=== PATIENT | male | born 1960 | race African-American/Black ===

== ENCOUNTER → 2016-12-04 | Outpatient (CLI) | payer MEDICARE, MEDICAID ==
[~2016-12-04] MED LIST: BISA-81 PO; COZAAR PO; DIPH25CA83 IVP; FOLI1CAP6 PO; HYDRALAZINE PO; LASIX PO; NORVASC PO; OMEP20CA10 PO; SEVE800T8 PO; VERAPAMIL PO
== END | disposition home or self-care (01) ==
LOC: NM 08:33
PROVIDERS: ATTEND Internal Medicine
DX: N25.81 Secondary hyperparathyroidism of renal origin (principal); N18.6 End stage renal disease; E04.2 Nontoxic multinodular goiter
CPT/HCPCS: 76536; 78070; A9500

== ENCOUNTER → 2017-01-08 | Outpatient (CLI) | payer MEDICARE, MEDICAID | END | disposition home or self-care (01) | LOC: NM 07:38 | PROVIDERS: ATTEND Internal Medicine Nephrology | DX: E04.1 Nontoxic single thyroid nodule (principal) | CPT/HCPCS: 78014; A9516 ==

== ENCOUNTER → 2017-01-31 | Outpatient (CLI) | payer MEDICARE, MEDICAID | END | disposition home or self-care (01) | LOC: US 07:35 | PROVIDERS: ATTEND Internal Medicine Nephrology | DX: D18.03 Hemangioma of intra-abdominal structures (principal); Q61.2 Polycystic kidney, adult type; R16.1 Splenomegaly, not elsewhere classified | CPT/HCPCS: 76700 ==

== ENCOUNTER 2017-04-24 07:28 | Emergency (ER) | payer MEDICARE, MEDICAID ==
[~2017-04-24] VITALS: Ht 172.7 cm; Wt 70.0 kg
[2017-04-24 07:31] VITALS: BP 120/73
== END 2017-04-24 13:08 | disposition left against medical advice (07) ==
LOC: ER 07:40
DX: R07.9 Chest pain, unspecified (principal); Z53.21 Procedure and treatment not carried out due to patient leaving prior to being seen by health care provider
CPT/HCPCS: 93005; J7030

== ENCOUNTER 2025-03-22 20:27 | Inpatient (IN) | payer MEDICARE, MEDICAID ==
[~2025-03-22] VITALS: Ht 170.2 cm; Wt 61.7 kg
[~2025-03-22 20:27] MED LIST changes: -OMEP20CA10 PO; +OMEP20CA14 PO
[2025-03-22 21:16] LABS: BASOPHILS % 0.7 % (0.0-2.0); EOSINOPHILS % 4.0 % (0.0-5.0); HEMATOCRIT. 33.5 % (42.0-52.0); HEMOGLOBIN. 10.2 g/dL (14.0-18.0); LYMPHOCYTES % 14.5 % (20.0-50.0); MEAN PLATELET VOLUME 7.7 fl (7.4-10.4); MONOCYTES % 8.6 % (2.0-8.0); NEUTROPHILS % 72.2 % (40.0-76.0); PLATELET 137 x1000/uL (130-400); RED BLOOD CELL COUNT 3.80 mill/uL (4.7-6.1); RED CELL DISTRIBUTION WIDTH 21.5 % (11.6-14.6)
[2025-03-22 21:34] LABS: CREATININE 3.5 mg/dL (0.6-1.3); UREA NITROGEN BLOOD 18 mg/dL (9-23)
[2025-03-22 21:35] LABS: PROTEIN TOTAL 7.2 g/dL (6.0-8.3); TROPONIN I HIGH SENSITIVITY 16 ng/L (3.0-53)
[2025-03-22 21:36] LABS: ASPARTATE AMINOTRANSFERASE 12 IU/L (<34); BILIRUBIN DIRECT 0.1 mg/dL (<=3.0); BILIRUBIN TOTAL 0.3 mg/dL (0.1-1.0)
[2025-03-22 21:39] LABS: INR 1.2
[2025-03-22] MEDS: MORPHINE SULFATE 4 MG/ML INJ (FOR IV/IM USE) IV ONE (22:09)
[2025-03-22] MEDS ORDERED: AZITHROMYCIN 500MG/250ML 250 ML IV ONE (22:45)
[2025-03-22] MEDS: CEFTRIAXONE 2GM/50ML 50 ML IV ONE (22:58)
[2025-03-23] VITALS (7 sets, daily range): BP systolic 106–140; BP diastolic 60–102; PULSE 60–78; RESP 16–20; TEMP 36.4–37.2; O2SAT 97–100
[2025-03-23] MEDS ORDERED: ACETAMINOPHEN 325MG TABLET PO PRN
[2025-03-23] MEDS ORDERED: ONDANSETRON HCL 4MG/2ML INJ IV PRN
[2025-03-23] MEDS ORDERED: NALOXONE HCL 0.4MG/ML VIAL IV PRN (00:45)
[2025-03-23] MEDS: LORAZEPAM 2MG/ML UD SYRINGE IV NR (01:08)
[2025-03-23] MEDS: DOXYCYCLINE 100MG/100ML 100 ML IV SCH ×2 (02:14→21:55)
[2025-03-23] MEDS: BLOOD SUGAR DIAGNOSTIC STRIP TEST SCH (06:23)
[2025-03-23] MEDS: INSULIN LISPRO 100 UNITS/ML SUBCUT SCH (06:23)
[2025-03-23 06:34] LABS: BASOPHILS % 0.4 % (0.0-2.0); EOSINOPHILS % 3.3 % (0.0-5.0); HEMATOCRIT. 33.9 % (42.0-52.0); HEMOGLOBIN. 10.3 g/dL (14.0-18.0); LYMPHOCYTES % 23.6 % (20.0-50.0); MEAN PLATELET VOLUME 7.9 fl (7.4-10.4); MONOCYTES % 11.3 % (2.0-8.0); NEUTROPHILS % 61.4 % (40.0-76.0); PLATELET 118 x1000/uL (130-400); RED BLOOD CELL COUNT 3.89 mill/uL (4.7-6.1); RED CELL DISTRIBUTION WIDTH 21.3 % (11.6-14.6)
[2025-03-23 06:47] LABS: CREATININE 4.0 mg/dL (0.6-1.3); TRIGLYCERIDE 41.0 mg/dL (0-150); UREA NITROGEN BLOOD 23.0 mg/dL (9-23)
[2025-03-23 06:48] LABS: LDL CHOLESTEROL 24.0 mg/dL (5-100)
[2025-03-23 06:49] LABS: TROPONIN I HIGH SENSITIVITY 18 ng/L (3.0-53)
[2025-03-23 06:51] LABS: T4 FREE 1.15 ng/dL (0.89-1.76)
[2025-03-23 07:33] LABS: HEPATITIS C AB NON REACTIVE (Neg) (Negative)
[2025-03-23] MEDS: ASPIRIN 81MG EC TABLET PO SCH (09:10)
[2025-03-23] MEDS: PANTOPRAZOLE SODIUM 40 MG/VIAL IV SCH (09:10)
[2025-03-23] MEDS: APIXABAN 5 MG TABLET PO SCH (09:11)
[2025-03-23] MEDS: CALCITRIOL 0.25MCG CAPSULE PO SCH (09:11)
[2025-03-23] MEDS: TAMSULOSIN HCL 0.4MG SR CAPSULE PO SCH (09:11)
[2025-03-23] MEDS: AMLODIPINE 5MG TABLET PO SCH (09:11)
[2025-03-23] MEDS ORDERED: CEFEPIME 1GM/50ML 50 ML IV SCH (11:00)
[2025-03-23 11:32] LABS: CREATININE 4.3 mg/dL (0.6-1.3); UREA NITROGEN BLOOD 22.0 mg/dL (9-23)
[2025-03-23] MEDS: CEFEPIME 1GM/50ML 50 ML IV SCH (12:15)
[2025-03-23] MEDS: AMIODARONE 200MG TABLET PO SCH (13:28)
[2025-03-23 16:03] LABS: BG BASE EXCESS 1.5 mmol/L (-2.0-3.0); BG CARBOXYHEMOGLOBIN 1.6 % (0.5-1.5); BG DEOXYHEMOGLOBIN 5.1 % (0.0-5.0); BG FLOW(L/min) 2.00 L/min; BG FRACTION INSPIRED OXYGEN 28; BG HCO3 ACT 27.2 mmol/L (21.0-28.0); BG METHEMOGLOBIN 0.3 % (0.5-1.5); BG OXYGEN SATURATION 94.8 % (94.0-98.0); BG OXYHEMOGLOBIN 93.0 % (94.0-98.0); BG PCO2 47.4 mmHg (35.0-48.0); BG PH 7.376 (7.350-7.450); BG PO2 72.7 mmHg (83.0-108.0); BG SAMPLE SITE LEFT BRACHIAL; BG TOTAL HEMOGLOBIN 11.5 g/dL (13.5-17.5); BG VENT MODE NASAL CANNULA
[2025-03-23 17:27] LABS: INFLUENZA TYPE A Presumptive Negative (Pres. Neg.)
[2025-03-23 17:28] LABS: INFLUENZA TYPE B Presumptive Negative (Pres. Neg.)
[2025-03-23 17:29] LABS: RESPIRATORY SYNCYTIAL VIRUS Not Detected (Not Detectd)
[2025-03-23] MEDS ORDERED: AMIODARONE 200MG TABLET PO SCH (21:00)
[2025-03-23] MEDS: ATORVASTATIN CALCIUM 40MG TABLET PO SCH (21:55)
[2025-03-23] MEDS ORDERED: CEFTRIAXONE 1GM/50ML 50 ML IV SCH (22:00)
[2025-03-23 22:37] LABS: CREATINE KINASE MB FRACTION 2.1 ng/mL (0.5-3.6); TROPONIN I HIGH SENSITIVITY 14 ng/L (3.0-53)
[2025-03-23] MEDS: ACETAMINOPHEN 325MG TABLET PO PRN (23:18)
[2025-03-24] VITALS (15 sets, daily range): BP systolic 100–127; BP diastolic 63–81; PULSE 60–85; RESP 14–67; TEMP 36.1–37; O2SAT 18–100
[2025-03-24] MEDS: LORAZEPAM 2MG/ML UD SYRINGE IV NR
[2025-03-24 08:10] LABS: BASOPHILS % 0.7 % (0.0-2.0); EOSINOPHILS % 3.7 % (0.0-5.0); HEMATOCRIT. 34.9 % (42.0-52.0); HEMOGLOBIN. 10.5 g/dL (14.0-18.0); LYMPHOCYTES % 21.4 % (20.0-50.0); MEAN PLATELET VOLUME 8.0 fl (7.4-10.4); MONOCYTES % 9.3 % (2.0-8.0); NEUTROPHILS % 64.9 % (40.0-76.0); PLATELET 124 x1000/uL (130-400); RED BLOOD CELL COUNT 3.98 mill/uL (4.7-6.1); RED CELL DISTRIBUTION WIDTH 21.6 % (11.6-14.6)
[2025-03-24 08:31] LABS: UREA NITROGEN BLOOD 37 mg/dL (9-23)
[2025-03-24 08:33] LABS: PHOSPHORUS 4.8 mg/dL (2.5-4.9)
[2025-03-24 09:07] LABS: CREATININE 5.3 mg/dL (0.6-1.3)
[2025-03-24 13:04] LABS: PROTEIN TOTAL 6.5 g/dL (6.0-8.3)
[2025-03-24 13:05] LABS: ASPARTATE AMINOTRANSFERASE 9 IU/L (<34); BILIRUBIN DIRECT < 0.1 mg/dL (<=3.0); BILIRUBIN TOTAL 0.2 mg/dL (0.1-1.0)
[2025-03-24] MEDS: CEFEPIME 1GM/50ML 50 ML IV SCH (14:21)
[2025-03-24] MEDS ORDERED: IOHEXOL-350 100 ML BOTTLE ONE (15:42)
[2025-03-24] MEDS: LORAZEPAM 0.5MG TABLET PO NR (23:16)
[2025-03-25] VITALS (15 sets, daily range): BP systolic 96–134; BP diastolic 53–84; PULSE 59–78; RESP 16–20; TEMP 36–36.9474; O2SAT 96–98
[2025-03-25] MEDS: MELATONIN 3MG TABLET PO NR (04:19)
[2025-03-25 06:32] LABS: UREA NITROGEN BLOOD 32 mg/dL (9-23)
[2025-03-25 06:33] LABS: BASOPHILS % 0.9 % (0.0-2.0); EOSINOPHILS % 3.5 % (0.0-5.0); HEMATOCRIT. 34.2 % (42.0-52.0); HEMOGLOBIN. 10.3 g/dL (14.0-18.0); LYMPHOCYTES % 21.2 % (20.0-50.0); MEAN PLATELET VOLUME 7.7 fl (7.4-10.4); MONOCYTES % 9.5 % (2.0-8.0); NEUTROPHILS % 64.9 % (40.0-76.0); PLATELET 119 x1000/uL (130-400); RED BLOOD CELL COUNT 3.86 mill/uL (4.7-6.1); RED CELL DISTRIBUTION WIDTH 22.1 % (11.6-14.6)
[2025-03-25 06:34] LABS: PHOSPHORUS 4.9 mg/dL (2.5-4.9)
[2025-03-25 06:38] LABS: CREATININE 5.2 mg/dL (0.6-1.3)
[2025-03-25 07:06] LABS: ADD RBC MORPHOLOGY YES
[2025-03-25 21:07] LABS: PLATELET ESTIMATE DECREASED
[2025-03-26] VITALS (7 sets, daily range): BP systolic 104–136; BP diastolic 52–70; PULSE 62–69; RESP 17–64; TEMP 36.6–36.9; O2SAT 94–99
[2025-03-26] MEDS: LORAZEPAM 0.5MG TABLET PO NR (00:12)
[2025-03-26] MEDS: MELATONIN 3MG TABLET PO NR (00:12)
[2025-03-26 05:50] LABS: BASOPHILS % 0.9 % (0.0-2.0); EOSINOPHILS % 3.1 % (0.0-5.0); HEMATOCRIT. 36.4 % (42.0-52.0); HEMOGLOBIN. 10.8 g/dL (14.0-18.0); LYMPHOCYTES % 20.2 % (20.0-50.0); MEAN PLATELET VOLUME 7.8 fl (7.4-10.4); MONOCYTES % 11.6 % (2.0-8.0); NEUTROPHILS % 64.2 % (40.0-76.0); PLATELET 117 x1000/uL (130-400); RED BLOOD CELL COUNT 4.11 mill/uL (4.7-6.1); RED CELL DISTRIBUTION WIDTH 21.7 % (11.6-14.6)
[2025-03-26 05:59] LABS: CREATININE 4.4 mg/dL (0.6-1.3)
[2025-03-26 06:00] LABS: UREA NITROGEN BLOOD 25 mg/dL (9-23)
[2025-03-26 06:02] LABS: PHOSPHORUS 4.7 mg/dL (2.5-4.9)
[2025-03-26] MEDS: DEXTROSE 50% WATER 50ML SYRINGE IV PRN (06:48)
[2025-03-26] MEDS: APIXABAN 2.5 MG TABLET PO SCH (10:10)
[2025-03-26] MEDS: HYDROCODONE/ACETAMINOPHEN 5/325MG TABLET PO PRN (15:55)
[2025-03-26] MEDS: IPRATROPIUM/ALBUTEROL 0.5-3(2.5)MG/3ML NEB HHN PRN (20:44)
[2025-03-26] MEDS: DOXYCYCLINE HYCLATE 100MG CAPSULE PO SCH (21:56)
[2025-03-26] MEDS: LORAZEPAM 0.5MG TABLET PO SCH (21:56)
[2025-03-26] MEDS: MELATONIN 3MG TABLET PO SCH (21:57)
[2025-03-27] VITALS (11 sets, daily range): BP systolic 82–145; BP diastolic 37–73; PULSE 60–98; RESP 16–18; TEMP 36.50292–37; O2SAT 93–100
[2025-03-27] MEDS: HYDROXYZINE 25MG TABLET PO PRN (12:34)
[2025-03-28] VITALS (14 sets, daily range): BP systolic 118–180; BP diastolic 58–81; PULSE 61–77; RESP 14–17; TEMP 36.3918–37.4; O2SAT 95–100
[2025-03-28 08:36] LABS: HEPATITIS A AB IGM NEGATIVE (Negative); HEPATITIS B CORE AB IGM NEGATIVE (Negative)
[2025-03-28 08:37] LABS: HEPATITIS C AB NON REACTIVE (Neg) (Negative)
[2025-03-28] MEDS: CEFTRIAXONE 2GM/50ML 50 ML IV SCH (15:43)
[2025-03-28] MEDS: NITROGLYCERIN 0.4MG TABLET SL SL PRN (17:31)
[2025-03-28] MEDS: VANCOMYCIN 1.25GM/250ML 250 ML IV NR (17:31)
[2025-03-29] VITALS (7 sets, daily range): BP systolic 129–152; BP diastolic 62–78; PULSE 62–79; RESP 16–22; TEMP 36.1–36.7; O2SAT 96–98
[2025-03-29 00:13] LABS: TROPONIN I HIGH SENSITIVITY 26 ng/L (3.0-53)
[2025-03-29] MEDS: GUAIFENESIN 600MG ER TABLET PO SCH (10:04)
[2025-03-29] MEDS: IPRATROPIUM/ALBUTEROL 0.5-3(2.5)MG/3ML NEB HHN PRN (14:52)
[2025-03-30] VITALS (14 sets, daily range): BP systolic 115–158; BP diastolic 52–79; PULSE 62–79; RESP 14–18; TEMP 36.4–36.9; O2SAT 89–98
[2025-03-30] MEDS ORDERED: MELATONIN 3MG TABLET PO NR (03:30)
[2025-03-30 07:29] LABS: BASOPHILS % 1.2 % (0.0-2.0); EOSINOPHILS % 3.8 % (0.0-5.0); HEMATOCRIT. 34.3 % (42.0-52.0); HEMOGLOBIN. 10.4 g/dL (14.0-18.0); LYMPHOCYTES % 22.4 % (20.0-50.0); MEAN PLATELET VOLUME 8.0 fl (7.4-10.4); MONOCYTES % 12.8 % (2.0-8.0); NEUTROPHILS % 59.8 % (40.0-76.0); PLATELET 106 x1000/uL (130-400); RED BLOOD CELL COUNT 3.93 mill/uL (4.7-6.1); RED CELL DISTRIBUTION WIDTH 20.8 % (11.6-14.6)
[2025-03-30 07:32] LABS: UREA NITROGEN BLOOD 65.0 mg/dL (9-23)
[2025-03-30 07:33] LABS: CREATININE 8.1 mg/dL (0.6-1.3)
[2025-03-30] MEDS: VANCOMYCIN 500MG/100ML IV SCH (14:36)
== END 2025-03-30 17:35 | DRG 133 ==
LOC: ER 20:27 → 5WST 22:33 → EDBEDREQ 22:36 → EDBEDREQTM 22:36 → ENRESERV 22:49
PROVIDERS: ADMIT Internal Medicine; ATTEND Internal Medicine
PROC: 5A1D70Z Performance of Urinary Filtration, Intermittent, Less than 6 Hours Per Day (ICD-10-PCS; principal; 2025-03-24)
PROC: 5A1D70Z Performance of Urinary Filtration, Intermittent, Less than 6 Hours Per Day (ICD-10-PCS; 2025-03-25)
PROC: 5A1D70Z Performance of Urinary Filtration, Intermittent, Less than 6 Hours Per Day (ICD-10-PCS; 2025-03-28)
PROC: 5A1D70Z Performance of Urinary Filtration, Intermittent, Less than 6 Hours Per Day (ICD-10-PCS; 2025-03-30)
DX: J96.01 Acute respiratory failure with hypoxia (principal); I33.0 Acute and subacute infective endocarditis; I50.23 Acute on chronic systolic (congestive) heart failure; D61.818 Other pancytopenia; J18.9 Pneumonia, unspecified organism; D63.1 Anemia in chronic kidney disease; I42.9 Cardiomyopathy, unspecified; N18.6 End stage renal disease; J44.0 Chronic obstructive pulmonary disease with (acute) lower respiratory infection; Z99.2 Dependence on renal dialysis; Z79.01 Long term (current) use of anticoagulants; M96.A3 Multiple fractures of ribs associated with chest compression and cardiopulmonary resuscitation; E04.2 Nontoxic multinodular goiter; I71.40 Abdominal aortic aneurysm, without rupture, unspecified; K76.89 Other specified diseases of liver; I15.1 Hypertension secondary to other renal disorders; F32.A Depression, unspecified; I11.0 Hypertensive heart disease with heart failure; Z95.2 Presence of prosthetic heart valve; Q61.2 Polycystic kidney, adult type; I48.0 Paroxysmal atrial fibrillation; N40.0 Benign prostatic hyperplasia without lower urinary tract symptoms; E78.5 Hyperlipidemia, unspecified; F17.200 Nicotine dependence, unspecified, uncomplicated; M48.56XA Collapsed vertebra, not elsewhere classified, lumbar region, initial encounter for fracture; Z79.899 Other long term (current) drug therapy; Z86.74 Personal history of sudden cardiac arrest; I72.3 Aneurysm of iliac artery; E21.1 Secondary hyperparathyroidism, not elsewhere classified; I44.7 Left bundle-branch block, unspecified; I25.10 Atherosclerotic heart disease of native coronary artery without angina pectoris; Z86.73 Personal history of transient ischemic attack (TIA), and cerebral infarction without residual deficits; I73.9 Peripheral vascular disease, unspecified; D18.03 Hemangioma of intra-abdominal structures; J98.11 Atelectasis; M81.0 Age-related osteoporosis without current pathological fracture; K59.00 Constipation, unspecified; Z95.0 Presence of cardiac pacemaker; I34.81 Nonrheumatic mitral (valve) annulus calcification; I35.0 Nonrheumatic aortic (valve) stenosis
CPT/HCPCS: 36415; 36600; 71045; 71275; 74174; 80048; 80061; 80076; 80202; 82375; 82550; 82553; 82805; 82962; 83036; 83605; 83735; 83880; 84100; 84145; 84439; 84443; 84484; 85025; 85379; 85651; 86141; 86705; 86709; 87340; 87420; 87804; 90935; 93005; 93306; 93970; 94640; 94664; 96365; 96366; 96375; 97162; 97165; 99291; A4606; J0692; J0696; J2060; J2270; J2470; J3373; J3490; Q9967